=== PATIENT | male | born 1995 | race Caucasian/White ===

== ENCOUNTER → 2020-12-17 | Outpatient (CLI) | payer OTHER | LOC: EXRD 07:55 | DX: R10.11 Right upper quadrant pain (principal); R11.0 Nausea; K76.0 Fatty (change of) liver, not elsewhere classified | CPT/HCPCS: 76705 ==

== ENCOUNTER → 2021-05-07 | Outpatient (CLI) | payer OTHER | LOC: NM 10:14 | DX: R10.11 Right upper quadrant pain (principal) | CPT/HCPCS: 78227; J2805 ==